=== PATIENT | male | born 1960 | race Hispanic/Latino ===

== ENCOUNTER 2017-05-24 07:54 | Inpatient (IN) | payer OTHER ==
[2017-05-24 09:58] LABS: BASO # 0.1 K/uL (0.0-0.2); BASO % 0.8 % (0.0-2.0); EOS % 0.5 % (0.0-4.0); HEMOGLOBIN 14.6 g/dL (12.0-18.0); LYMPH # 1.6 K/uL (1.0-4.3); LYMPH % 18.2 % (20.0-40.0); MEAN CELL VOLUME 87.5 fl (80.0-94.0); MEAN CORPUSCULAR HEMOGLOBIN 30.7 pg (27.0-31.0); MEAN CORPUSCULAR HGB CONC 35.1 g/dL (33.0-37.0); MEAN PLATELET VOLUME 8.5 fl (7.2-11.7); MONO # 0.9 K/uL (0.0-0.8); MONO % 9.6 % (0.0-10.0); NEUT # 6.3 K/uL (1.8-7.0); NEUT % 70.9 % (50.0-75.0); NRBC % 0.1 % (0.0-0.0); RBC 4.75 Mil/uL (4.40-5.90); WHITE BLOOD COUNT 8.9 K/uL (4.8-10.8)
--- NOTE | 2017-05-24 09:58 | ED PDOC ---
HPI: Chest Pain Time Seen by Provider: 05/24/17 09:25 Chief Complaint (Nursing): Chest Pain Chief Complaint (Provider): Chest Pain History Per: Patient History/Exam Limitations: no limitations Onset/Duration Of Symptoms: Days (x 1) Current Symptoms Are (Timing): Still Present Additional Complaint(s): 56 year old male with a history of psoriasis and obstructive sleep apnea presents to the ED c/o chest tightness across chest associated with shortness of breath since last night. Describes as a "band across chest". Denies nausea and vomiting. PMD: none provided Past Medical History Reviewed: Historical Data, Nursing Documentation, Vital Signs Vital Signs: Last Vital Signs Temp 97.4 F L 05/24/17 08:06 Pulse 97 H 05/24/17 08:06 Resp 16 05/24/17 08:06 BP 147/92 H 05/24/17 08:06 Pulse Ox 98 05/24/17 10:02 - Medical History PMH: Sleep Apnea Other PMH: Psoriasis - Surgical History Surgical History: No Surg Hx - Family History Family History: States: Unknown Family Hx - Social History Current smoker - smoking cessation education provided: Yes Alcohol: Social Drugs: Denies - Allergies Allergies/Adverse Reactions: Allergies Allergy/AdvReac Type Severity Reaction Status Date / Time No Known Allergies Allergy Verified 05/24/17 08:06 Review of Systems Cardiovascular: Positive for: Chest Pain Respiratory: Positive for: Shortness of Breath Gastrointestinal: Negative for: Nausea, Vomiting Physical Exam - Reviewed Nursing Documentation Reviewed: Yes Vital Signs Reviewed: Yes - Physical Exam Appears: Positive for: Non-toxic, No Acute Distress Head Exam: Positive for: ATRAUMATIC, NORMOCEPHALIC Skin: Positive for: Normal Color, Warm, Dry Eye Exam: Positive for: EOMI, Normal appearance, PERRL Cardiovascular/Chest: Positive for: Regular Rate, Rhythm Respiratory: Positive for: CNT, Normal Breath Sounds Gastrointestinal/Abdominal: Positive for: Normal Exam, Soft. Negative for: Tenderness Extremity: Positive for: Other (Psoriatic rash right upper extremity ) Neurologic/Psych: Positive for: Alert, Oriented - Laboratory Results Result Diagrams: 05/24/17 09:53 05/24/17 09:53 - ECG O2 Sat by Pulse Oximetry: 98 (RA) Pulse Ox Interpretation: Normal Medical Decision Making Medical Decision Making: Time: 09:39 Initial Plan: --CMP --EKG --Troponin --CBC --Chest x-ray --Aspirin 325 mg PO Scribe Attestation: Documented by Fiorella White, acting as a scribe for John Gandara MD Provider Scribe Attestation: All medical record entries made by the Scribe were at my direction and personally dictated by me. I have reviewed the chart and agree that the record accurately reflects my personal performance of the history, physical exam, medical decision making, and the department course for this patient. I have also personally directed, reviewed, and agree with the discharge instructions and disposition. Disposition - Clinical Impression Clinical Impression: Chest pain - Patient ED Disposition Is Patient to be Admitted: Yes - Disposition Disposition Time: 11:34 Condition: FAIR Forms: [employer]re[employer] (Italian) - Pt Status Changed To: Hospital Disposition Of: Observation - POA Present On Arrival: None
[2017-05-24 10:08] LABS: ALB/GLOB RATIO 1.2 (1.0-2.1); ALBUMIN 4.4 g/dL (3.5-5.0); CALCIUM 9.4 mg/dL (8.4-10.2); GFR AFRICAN-AMERICAN > 60; GFR NON-AFRICAN AMERICAN > 60
[2017-05-24 10:09] LABS: ALT/SGPT 68 U/L (21-72); AST/SGOT 65 U/L (17-59); BLOOD UREA NITROGEN 13 mg/dl (9-20)
--- NOTE | 2017-05-24 13:40 | RAD ---
HISTORY: chest pain COMPARISON: No prior. TECHNIQUE: Chest PA and lateral FINDINGS: LUNGS: No active pulmonary disease. PLEURA: No significant pleural effusion identified. No pneumothorax apparent. CARDIOVASCULAR: Heart appears mildly enlarged knee. KeyNormal. OSSEOUS STRUCTURES: Mild multilevel degenerative spondylosis of the thoracic spine. Minimal chronic anterior wedge deformities of a few upper/ mid thoracic segments. VISUALIZED UPPER ABDOMEN: Normal. OTHER FINDINGS: None. IMPRESSION: No acute infiltrates. The the
--- NOTE | 2017-05-24 19:57 | CP.PCM.CON ---
History of Present Illness - History of Present Illness History of Present Illness: 56 y/o male presents with chest discomfort x 4 hours. Pain was 5/10 at peak, woke him from sleep last night at 2 am. He cannot isolate any relieving or exac factors. pain described as pressure across entire chest, w associated sob , LH, and headache. Pain does not increase with activity or manual manipulation of chest or abdomen. It is not associated with meals or relieved by belching. Pt admits to MOSLEY with 2-3 flights of stairs, however no chest discomfort. He denies palp, syncope, neck or arm radiation, n/v/d/c. diaphoresis. pt did have one prior episode 3 years ago but did not seek med attention. he has hx of simon and does not wear cpap. pt also admits to excessive etoh intake this past weekend. he admits to drinking occasionally, with binge drinking 3 days ago and yesterday. Pt has a strong fam hx of IHD ( mom had PR at 52 which was fatal). denies dm, htn, dyslipidemia (however has not been to physician in many years). since admission bp has been elevated. Review of Systems - Constitutional Constitutional: As Per HPI, Headache, Snoring, Sleep Apnea. absent: Anorexia, Chills, Daytime Sleepiness, Excessive Sweating, Fatigue, Fever, Frequent Falls, Increased Appetite, Lethargy, Malaise, Night Sweats, Weight Gain, Weight Loss, Weakness, Other - EENT Eyes: As Per HPI. absent: Blind Spots, Blurred Vision, Change in Vision, Decreased Night Vision, Diplopia, Discharge, Dry Eye, Exophthalmos, Floaters, Irritation, Itchy Eyes, Loss of Peripheral Vision, Pain, Photophobia, Requires Corrective Lenses, Sees Flashes, Spots in Vision, Tunnel Vision, Other Visual Disturbances, Loss of Vision, Other Ears: As Per HPI. absent: Decreased Hearing, Ear Discharge, Ear Pain, Tinnitus , Abnormal Hearing, Disequilibrium, Dizziness, Other Nose/Mouth/Throat: As Per HPI. absent: Epistaxis, Nasal Congestion, Nasal Discharge, Nasal Obstruction, Nasal Trauma, Nose Pain, Post Nasal Drip, Sinus Pain, Sinus Pressure, Bleeding Gums, Change in Voice, Dental Pain, Dry Mouth, Dysphagia, Halitosis, Hoarsness, Lip Swelling, Mouth Lesions, Mouth Pain, Odynophagia, Sore Throat, Throat Swelling, Tongue Swelling, Facial Pain, Neck Pain, Neck Mass, Other - Cardiovascular Cardiovascular: Chest Pain at Rest, Dyspnea, Lightheadedness. absent: As Per HPI, Acrocyanosis, Chest Pain, Chest Pain with Activity, Claudication, Diaphoresis, Dyspnea on Exertion, Edema, Irregular Heart Rhythm, Pain Radiating to Arm/Neck/Jaw, Leg Edema, Leg Ulcers, Orthopnea, Palpitations, Paroxysmal Nocturnal Dyspnea, Pedal Edema, Radiating Pain, Rapid Heart Rate, Slow Heart Rate, Syncope, Other - Respiratory Respiratory: Cough, Dyspnea, Dyspnea on Exertion. absent: As Per HPI, Hemoptysis, Wheezing, Snoring, Stridor, Pain on Inspiration, Chest Congestion, Excessive Mucous Production, Change in Mucous Color, Pain with Coughing, Other - Gastrointestinal Gastrointestinal: As Per HPI. absent: Abdominal Pain, Belching, Bloating, Change in Bowel Habits, Change in Stool Character, Coffee Ground Emesis, Constipation, Cramping, Diarrhea, Dyspepsia, Dysphagia, Early Satiety, Excessive Flatus, Fecal Incontinence, Heartburn, Hematemesis, Hematochezia, Loose Stools, Melena, Nausea, Odynophagia, Temesmus, Vomiting, Other - Genitourinary Genitourinary: As Per HPI. absent: Change in Urinary Stream, Difficulty Urinating, Dysuria, Flank Pain, Hematuria, Pyuria, Nocturia, Urinary Incontinence, Urinary Frequency, Urinary Hesitance, Urinary Urgency, Voiding Freq/Small Amts, Freq UTI, Hx Renal/Bladder Calculi, Hx /Renal Surgery, Bladder Distension, Other - Reproductive: Male Reproductive:Male: As Per HPI - Musculoskeletal Musculoskeletal: As Per HPI. absent: Abnormal Gait, Arthralgias, Atrophy, Back Pain, Deformity, Joint Swelling, Limited Range of Motion, Loss of Height, Muscle Cramps, Muscle Weakness, Myalgias, Neck Pain, Numbness, Radiating Pain into Limb, Stiffness, Tingling, Other - Integumentary Integumentary: As Per HPI Additional comments: psoriasis which is chronic - Neurological Neurological: As Per HPI. absent: Abnormal Gait, Abnormal Hearing, Abnormal Movements, Abnormal Speech, Behavioral Changes, Burning Sensations, Confusion, Convulsions, Disequilibrium, Dizziness, Numbness, Focal Weakness, Frequent Falls , Headaches, Lack of Coordination, Loss of Vision, Memory Loss, Paresthesias, Radicular Pain, Restless Legs, Sensory Deficit, Syncope, Tingling, Tremor, Vertigo, Weakness, Other Visual Disturbances, Other - Psychiatric Psychiatric: As Per HPI. absent: Abnormal Sleep Pattern, Anhedonia, Anxiety, Auditory Hallucinations, Behavioral Changes, Change in Appetite, Change in Libido, Confusion, Depression, Difficulty Concentrating, Hallucinations, Homicidal Ideation, Hopelessness, Irritability, Memory Loss, Mood Swings, Panic Attacks, Paranoia, Suicidal Ideation, Visual Hallucinations, Tactile Hallucinations, Other - Endocrine Endocrine: As Per HPI. absent: Change in Body Appearance, Change in Libido, Cold Intolorance, Deepening of Voice, Excessive Sweating, Fatigue, Flushing, Heat Intolorance, Increase in Ring/Shoe/Hat Size, Palpitations, Polydipsia, Polyphagia, Polyuria, Other - Hematologic/Lymphatic Hematologic: As Per HPI. absent: Easy Bleeding, Easy Bruising, Lymphadenopathy , Other Past Patient History - Infectious Disease Hx of Infectious Diseases: None - Tetanus Immunizations Tetanus Immunization: Unknown - Past Medical History & Family History Past Medical History?: Yes - Past Social History Smoking Status: Former Smoker Chewing Tobacco Use: No Cigar Use: No Alcohol: Occasional Drugs: Denies Home Situation {Lives}: With Family Domestic Violence: Negative - CARDIAC Hx Cardiac Disorders: No - PULMONARY Hx Respiratory Disorders: No - NEUROLOGICAL Hx Neurological Disorder: No - HEENT Hx HEENT Problems: No - RENAL Hx Chronic Kidney Disease: No - ENDOCRINE/METABOLIC Hx Endocrine Disorders: No - HEMATOLOGICAL/ONCOLOGICAL Hx Blood Disorders: No - INTEGUMENTARY Hx Dermatological Problems: Yes Hx Psoriasis: Yes - MUSCULOSKELETAL/RHEUMATOLOGICAL Hx Musculoskeletal Disorders: Yes Hx Falls: No Hx Fractures: Yes - GENITOURINARY/GYNECOLOGICAL Hx Genitourinary Disorders: No - PSYCHIATRIC Hx Psychophysiologic Disorder: No Hx Substance Use: No - SURGICAL HISTORY Hx Appendectomy: Yes Hx Orthopedic Surgery: Yes (right tibia) - ANESTHESIA Hx Anesthesia: Yes Hx Anesthesia Reactions: No Meds Allergies/Adverse Reactions: Allergies Allergy/AdvReac Type Severity Reaction Status Date / Time No Known Allergies Allergy Verified 05/24/17 08:06 - Medications Medications: Current Medications Aspirin (Aspirin Chewable) 81 mg PO DAILY KENIA Enoxaparin Sodium (Lovenox) 40 mg SC DAILY KENIA PRN Reason: Protocol Physical Exam - Constitutional Appears: Well, Non-toxic - Head Exam Head Exam: ATRAUMATIC, NORMAL INSPECTION, NORMOCEPHALIC - Eye Exam Eye Exam: EOMI, Normal appearance, PERRL. absent: Conjunctival injection, Nystagmus, Periorbital swelling, Periorbital tenderness, Scleral icterus Pupil Exam: NORMAL ACCOMODATION, PERRL. absent: Fixed, Irregular, Miosis, Mydriatic, Unequal - ENT Exam ENT Exam: Mucous Membranes Moist, Normal Exam. absent: Mucous Membranes Dry, Normal External Ear Exam, Normal Oropharynx, TM's Normal Bilaterally - Neck Exam Neck exam: Positive for: Normal Inspection. Negative for: Full Rom, Lymphadenopathy, Meningismus, Tenderness, Thyromegaly - Respiratory Exam Respiratory Exam: Clear to Auscultation Bilateral, NORMAL BREATHING PATTERN. absent: Accessory Muscle Use, Chest Wall Tenderness, Decreased Breath Sounds, Prolonged Expiratory Phase, Rales, Rhonchi, Wheezes, Respiratory Distress, Stridor - Cardiovascular Exam Cardiovascular Exam: REGULAR RHYTHM, +S1, +S2, Systolic Murmur. absent: Bradycardia, Tachycardia, Clicks, Diastolic murmur, Gallop, Irregular Rhythm, JVD, RRR, Rubs, +S4 - GI/Abdominal Exam GI & Abdominal Exam: Normal Bowel Sounds, Soft. absent: Bruit, Diminished Bowel Sounds, Distended, Firm, Guarding, Hernia, Hyperactive Bowel Sounds, Hypoactive Bowel Sounds, Mass, Organomegaly, Pulsatile Mass, Rebound, Rigid, Tenderness - Rectal Exam Rectal Exam: Deferred - Extremities Exam Extremities exam: Positive for: normal inspection. Negative for: calf tenderness, full ROM, joint swelling, normal capillary refill, pedal edema, tenderness, pedal pulses present - Back Exam Back exam: NORMAL INSPECTION. absent: CVA tenderness (L), CVA tenderness (R), FULL ROM, muscle spasm, paraspinal tenderness, rash noted, tenderness, vertebral tenderness - Neurological Exam Neurological exam: Alert, CN II-XII Intact, Normal Gait, Oriented x3, Reflexes Normal - Psychiatric Exam Psychiatric exam: Normal Affect, Normal Mood - Skin Additional comments: dry scaly patches on b/l UE's Results - Vital Signs Recent Vital Signs: Last Vital Signs Temp 98.4 F 05/24/17 19:32 Pulse 79 05/24/17 19:32 Resp 20 05/24/17 19:32 BP 143/76 05/24/17 19:32 Pulse Ox 97 05/24/17 19:32 - Labs Result Diagrams: 05/24/17 09:53 05/24/17 09:53 Labs: Laboratory Results - last 24 hr 05/24/17 05/24/17 09:53 09:53 WBC 8.9 RBC 4.75 Hgb 14.6 Hct 41.5 MCV 87.5 MCH 30.7 MCHC 35.1 RDW 13.0 Plt Count 208 MPV 8.5 Neut % (Auto) 70.9 Lymph % (Auto) 18.2 L Barren % (Auto) 9.6 Eos % (Auto) 0.5 Baso % (Auto) 0.8 Neut # 6.3 Lymph # 1.6 Barren # 0.9 H Eos # 0.0 Baso # 0.1 Sodium 142 Potassium 4.5 Chloride 107 Carbon Dioxide 21 L Anion Gap 19 BUN 13 Creatinine 0.9 Est GFR ( Amer) > 60 Est GFR (Non-Af Amer) > 60 Random Glucose 104 Calcium 9.4 Total Bilirubin 1.0 AST 65 H ALT 68 Alkaline Phosphatase 71 Troponin I 0.0210 Total Protein 8.0 Albumin 4.4 Globulin 3.6 Albumin/Globulin Ratio 1.2 Assessment & Plan (1) Chest pain Status: Acute (2) SIMON (obstructive sleep apnea) Status: Acute (3) Elevated BP without diagnosis of hypertension Status: Acute (4) Family history of ischemic heart disease (IHD) Status: Acute (5) MOSLEY (dyspnea on exertion) Status: Acute (6) Psoriasis Status: Acute - Assessment and Plan (Free Text) Plan: PT HAS TROP NEG X 1. EKG IS NONISCHEMIC. NO CLEAR ETIOLOGY OF CHEST PRESSURE AT THIS TIME. I RECOMMEND ECHO AND EX NUC ST GIVEN HIS STRONG FAM HX OF CAD AND HIS POOR OUTPT FOLLOWUP HISTORY. MONITOR BP (HOLD OFF TREATING). I WOULD LIKE TO SEE PTS BP RESPONSE WITH EXERCISE. IF HIS BASELINE AND EXERCISE BP REMAIN ELEVATED THEN WILL CONSIDER TREATING POST TESTING. RECHECK EKG, LYTES, DRUG TOX. GIVE PEPCID. CHECK LIPIDS. THUS FAR NO ARRYTHMIAS ON TELE. 45 MIN TOTAL CARE TIME.
[2017-05-24 23:17] LABS: SQUAMOUS EPITHIAL < 1 /hpf (0-5); URINE BILIRUBIN NEGATIVE (NEGATIVE); URINE BLOOD MODERATE (NEGATIVE); URINE CLARITY CLOUDY (Clear); URINE COLOR AMBER (YELLOW); URINE GLUCOSE (UA) NEG (Normal); URINE HYALINE CAST 0-2 /hpf (0-2); URINE LEUKOCYTE ESTERASE NEG Leu/uL (Negative); URINE NITRATE NEGATIVE (NEGATIVE); URINE PROTEIN 100 mg/dL (NEGATIVE)
[2017-05-24] MEDS ORDERED: Ammonium Lactate 12% Cream (140 g) TOP PRN (23:25)
[2017-05-25 05:43] LABS: BLOOD UREA NITROGEN 18 mg/dl (9-20); CALCIUM 9.6 mg/dL (8.4-10.2); GFR AFRICAN-AMERICAN > 60; GFR NON-AFRICAN AMERICAN > 60; HDL CHOLESTEROL 45 MG/DL (30-70); MAGNESIUM 2.7 MG/DL (1.6-2.3)
[2017-05-25 05:47] LABS: LDL CHOLESTEROL 146 mg/dL (0-129)
--- NOTE | 2017-05-25 08:14 | CARD ---
APPROVED REPORT EKG Measurement Heart [id number] <Conclusion> Sinus bradycardia Incomplete right bundle branch block Borderline ECG
--- NOTE | 2017-05-25 08:39 | CARD ---
APPROVED REPORT EKG Measurement Heart [id number] [place] [id number] <Conclusion> Normal sinus rhythm Incomplete right bundle branch block Possible old inferior wall infarct Borderline ECG
[2017-05-25] MEDS ORDERED: Enoxaparin 40 mg Syringe SC SCH (09:00)
[2017-05-25] MEDS: Famotidine 40 MG/5 ML PO SCH (15:00)
--- NOTE | 2017-05-25 16:34 | CP.PCM.HP ---
History of Present Illness - History of Present Illness History of Present Illness: CC: Chest pain. 56 y/o M, Hx of SIMON not using CPAP, brought by EMS to ER [facility] to be evaluated for Chest pain that began at 2AM DOA and woke him from sleep, Pt denied Hx of HTN, not using any medications and without relief. Pt c/o of intermittent chest pain, across chest, pressure type of moderate to severe intensity 5:10, non radiating, associated to headache and mild SOB. Worsening symptoms: MOSLEY after going up 3 steps, Hx of excessive alcohol intake last weekend. Aggravated factor: No following medical Tx after having same episode 3 yrs ago. Pt denied: Fever, chills, n/v/d, abdominal pain, palpitations, syncope, dizziness, LOC, cough, sick contact, resent travel out of [facility]. EKG: Normal sinus rhythm, possible old inferior wall infarct. CXR shows: No active disease. Present on Admission - Present on Admission Any Indicators Present on Admission: No Review of Systems - Constitutional Constitutional: Headache, Snoring, Sleep Apnea - EENT Eyes: absent: As Per HPI, Blind Spots, Blurred Vision, Change in Vision, Decreased Night Vision, Diplopia, Discharge, Dry Eye, Exophthalmos, Floaters, Irritation, Itchy Eyes, Loss of Peripheral Vision, Pain, Photophobia, Requires Corrective Lenses, Sees Flashes, Spots in Vision, Tunnel Vision, Other Visual Disturbances, Loss of Vision, Other Nose/Mouth/Throat: absent: As Per HPI, Epistaxis, Nasal Congestion, Nasal Discharge, Nasal Obstruction, Nasal Trauma, Nose Pain, Post Nasal Drip, Sinus Pain, Sinus Pressure, Bleeding Gums, Change in Voice, Dental Pain, Dry Mouth, Dysphagia, Halitosis, Hoarsness, Lip Swelling, Mouth Lesions, Mouth Pain, Odynophagia, Sore Throat, Throat Swelling, Tongue Swelling, Facial Pain, Neck Pain, Neck Mass, Other - Cardiovascular Cardiovascular: Chest Pain, Dyspnea, Dyspnea on Exertion. absent: As Per HPI, Acrocyanosis, Chest Pain at Rest, Chest Pain with Activity, Claudication, Diaphoresis, Edema, Irregular Heart Rhythm, Pain Radiating to Arm/Neck/Jaw, Leg Edema, Leg Ulcers, Lightheadedness, Orthopnea, Palpitations, Paroxysmal Nocturnal Dyspnea, Pedal Edema, Radiating Pain, Rapid Heart Rate, Slow Heart Rate, Syncope, Other - Respiratory Respiratory: Dyspnea, Dyspnea on Exertion, Snoring. absent: As Per HPI, Cough, Hemoptysis, Wheezing, Stridor, Pain on Inspiration, Chest Congestion, Excessive Mucous Production, Change in Mucous Color, Pain with Coughing, Other - Gastrointestinal Gastrointestinal: absent: As Per HPI, Abdominal Pain, Belching, Bloating, Change in Bowel Habits, Change in Stool Character, Coffee Ground Emesis, Constipation, Cramping, Diarrhea, Dyspepsia, Dysphagia, Early Satiety, Excessive Flatus, Fecal Incontinence, Heartburn, Hematemesis, Hematochezia, Loose Stools, Melena, Nausea, Odynophagia, Temesmus, Vomiting, Other - Genitourinary Genitourinary: absent: As Per HPI, Change in Urinary Stream, Difficulty Urinating, Dysuria, Flank Pain, Hematuria, Pyuria, Nocturia, Urinary Incontinence, Urinary Frequency, Urinary Hesitance, Urinary Urgency, Voiding Freq/Small Amts, Freq UTI, Hx Renal/Bladder Calculi, Hx /Renal Surgery, Bladder Distension, Other - Musculoskeletal Musculoskeletal: absent: As Per HPI, Abnormal Gait, Arthralgias, Atrophy, Back Pain, Deformity, Joint Swelling, Limited Range of Motion, Loss of Height, Muscle Cramps, Muscle Weakness, Myalgias, Neck Pain, Numbness, Radiating Pain into Limb, Stiffness, Tingling, Other - Integumentary Integumentary: Other (Chronic Psoriasis). absent: As Per HPI, Acne, Alopecia, Bleeding Lesions, Change in Hair, Change in Nails, Change in Pigmentation, Changing Lesions, Dry Skin, Erythema, Furuncle, Hirsutism, Lesions, New Lesions , Non-Healing Lesions, Photosensitivity, Pruritus, Rash, Skin Pain, Skin Ulcer, Sores, Striae, Swelling, Unusual Bruising, Wounds, Jaundice - Neurological Neurological: absent: As Per HPI, Abnormal Gait, Abnormal Hearing, Abnormal Movements, Abnormal Speech, Behavioral Changes, Burning Sensations, Confusion, Convulsions, Disequilibrium, Dizziness, Numbness, Focal Weakness, Frequent Falls , Headaches, Lack of Coordination, Loss of Vision, Memory Loss, Paresthesias, Radicular Pain, Restless Legs, Sensory Deficit, Syncope, Tingling, Tremor, Vertigo, Weakness, Other Visual Disturbances, Other - Psychiatric Psychiatric: absent: As Per HPI, Abnormal Sleep Pattern, Anhedonia, Anxiety, Auditory Hallucinations, Behavioral Changes, Change in Appetite, Change in Libido, Confusion, Depression, Difficulty Concentrating, Hallucinations, Homicidal Ideation, Hopelessness, Irritability, Memory Loss, Mood Swings, Panic Attacks, Paranoia, Suicidal Ideation, Visual Hallucinations, Tactile Hallucinations, Other - Endocrine Endocrine: absent: As Per HPI, Change in Body Appearance, Change in Libido, Cold Intolorance, Deepening of Voice, Excessive Sweating, Fatigue, Flushing, Heat Intolorance, Increase in Ring/Shoe/Hat Size, Palpitations, Polydipsia, Polyphagia, Polyuria, Other - Hematologic/Lymphatic Hematologic: absent: As Per HPI, Easy Bleeding, Easy Bruising, Lymphadenopathy, Other Past Patient History - Infectious Disease Hx of Infectious Diseases: None - Tetanus Immunizations Tetanus Immunization: Unknown - Past Medical History & Family History Past Medical History?: Yes Pertinent Family History: Mother: Fatal [place] at 52 y/o - Past Social History Smoking Status: Former Smoker Chewing Tobacco Use: No Cigar Use: No Alcohol: Occasional Drugs: Denies Home Situation {Lives}: With Family Domestic Violence: Negative - CARDIAC Hx Cardiac Disorders: No - PULMONARY Hx Respiratory Disorders: Yes Hx Sleep Apnea: Yes - NEUROLOGICAL Hx Neurological Disorder: No - HEENT Hx HEENT Problems: No - RENAL Hx Chronic Kidney Disease: No - ENDOCRINE/METABOLIC Hx Endocrine Disorders: No - HEMATOLOGICAL/ONCOLOGICAL Hx Blood Disorders: No - INTEGUMENTARY Hx Dermatological Problems: Yes Hx Psoriasis: Yes - MUSCULOSKELETAL/RHEUMATOLOGICAL Hx Musculoskeletal Disorders: Yes Hx Falls: No Hx Fractures: Yes - GENITOURINARY/GYNECOLOGICAL Hx Genitourinary Disorders: No - PSYCHIATRIC Hx Psychophysiologic Disorder: No Hx Substance Use: No - SURGICAL HISTORY Hx Appendectomy: Yes Hx Orthopedic Surgery: Yes (right tibia) - ANESTHESIA Hx Anesthesia: Yes Hx Anesthesia Reactions: No Meds Allergies/Adverse Reactions: Allergies Allergy/AdvReac Type Severity Reaction Status Date / Time No Known Allergies Allergy Verified 05/24/17 08:06 Physical Exam - Constitutional Appears: No Acute Distress - Head Exam Head Exam: NORMAL INSPECTION - Eye Exam Eye Exam: PERRL - ENT Exam ENT Exam: Normal Exam - Neck Exam Neck exam: Positive for: Normal Inspection - Respiratory Exam Respiratory Exam: NORMAL BREATHING PATTERN - Cardiovascular Exam Cardiovascular Exam: REGULAR RHYTHM, Systolic Murmur - GI/Abdominal Exam GI & Abdominal Exam: Normal Bowel Sounds, Soft - Extremities Exam Additional comments: Dry scaly patches RUE's - Back Exam Back exam: NORMAL INSPECTION - Neurological Exam Neurological exam: Alert, Oriented x3 Additional comments: No motor sensory deficit. - Psychiatric Exam Psychiatric exam: Normal Mood - Skin Skin Exam: Dry (scaly patches RUE's), Warm Results - Vital Signs Recent Vital Signs: Last Vital Signs Temp 98.9 F 05/25/17 16:18 Pulse 61 05/25/17 16:18 Resp 14 05/25/17 16:18 BP 139/84 05/25/17 16:18 Pulse Ox 98 05/25/17 16:18 reviewed J.P. - Labs Result Diagrams: 05/24/17 09:53 05/25/17 04:25 Labs: Laboratory Results - last 24 hr 05/24/17 05/24/17 05/24/17 16:31 22:50 22:50 ESR Sodium Potassium Chloride Carbon Dioxide Anion Gap BUN Creatinine Est GFR ( Amer) Est GFR (Non-Af Amer) Random Glucose Calcium Magnesium Troponin I 0.0130 0.0120 Triglycerides Cholesterol LDL Cholesterol Direct HDL Cholesterol TSH 3rd Generation Urine Color Emperatriz Urine Clarity Cloudy Urine pH 5.0 Ur Specific [place] 1.029 Urine Protein 100 Urine Glucose (UA) Neg Urine Ketones 20 Urine Blood Moderate Urine Nitrate Negative Urine Bilirubin Negative Urine Urobilinogen 2.0 Ur Leukocyte Esterase Neg Urine RBC (Auto) 4 H Urine Microscopic WBC 3 Ur Squamous Epith Cells < 1 Hyaline Casts 0-2 05/25/17 05/25/17 04:25 04:25 ESR 36 H Sodium 144 Potassium 5.0 Chloride 104 Carbon Dioxide 30 Anion Gap 15 BUN 18 Creatinine 1.1 Est GFR ( Amer) > 60 Est GFR (Non-Af Amer) > 60 Random Glucose 97 Calcium 9.6 Magnesium 2.7 H Troponin I Triglycerides 177 H Cholesterol 219 H LDL Cholesterol Direct 146 H HDL Cholesterol 45 TSH 3rd Generation 3.22 Urine Color Urine Clarity Urine pH Ur Specific [place] Urine Protein Urine Glucose (UA) Urine Ketones Urine Blood Urine Nitrate Urine Bilirubin Urine Urobilinogen Ur Leukocyte Esterase Urine RBC (Auto) Urine Microscopic WBC Ur Squamous Epith Cells Hyaline Casts reviewed J.P. - EKG Data EKG comments: reviewed J.P. - Imaging and Cardiology Chest x-ray Status: Report reviewed by me (J.P.) Assessment & Plan (1) Chest pain Status: Acute Priority: High (2) Elevated BP without diagnosis of hypertension Status: Acute Priority: High (3) SIMON (obstructive sleep apnea) Status: Chronic Priority: Medium (4) Psoriasis Status: Chronic Priority: Medium (5) Family history of ischemic heart disease (IHD) Status: Chronic - Assessment and Plan (Free Text) Plan: Pt seen by call center consultant with impression of no etiology for chest pain, recommended Echo and EX NUC ST, monitor BP, continue ASA and rest of Tx. Cardiology consult appreciated. - Date & Time Date: 05/25/17
--- NOTE | 2017-05-25 17:03 | CP.PCM.PN ---
Subjective - Date & Time of Evaluation Date of Evaluation: 05/25/17 Time of Evaluation: 17:00 - Subjective Subjective: PT WITHOUT CHEST DISCOMFORT CURRENTLY. EX NUC ST NOT FINALIZED. HOWEVER IMAGES REVEAL A MILD REVERSIBLE INFERIOR WALL DEFECT. NML EF. RAW IMAGES REVEAL STAR ARTIFACT. GIVEN PTS MULTIPLE RISK FACTORS, ST AND SYMPTOMS I WILL SCHEDULE HIM FOR CATH TOMORROW AT [facility]. PROCEDURE EXPLAINED TO PT. PLEASE HOLD AM LOVENOX, BUT CONTINUE ASA. MONITOR LYTES. NPO P MN. Objective - Vital Signs/Intake and Output Vital Signs (last 24 hours): Temp Pulse Resp BP Pulse Ox 98.9 F 61 14 139/84 98 05/25/17 16:18 05/25/17 16:18 05/25/17 16:18 05/25/17 16:18 05/25/17 16:18 - Medications Medications: Current Medications Aspirin (Aspirin Chewable) 81 mg PO DAILY [facility] Last Admin: 05/25/17 15:00 Dose: 81 mg Enoxaparin Sodium (Lovenox) 40 mg SC DAILY [facility] PRN Reason: Protocol Last Admin: 05/25/17 15:00 Dose: 40 mg Famotidine (Pepcid) 40 mg PO DAILY [facility] Last Admin: 05/25/17 15:00 Dose: 40 mg Hydrocortisone (Cortizone 1% Cream) 1 applic TOP BID [facility] Last Admin: 05/25/17 16:47 Dose: 1 applic - Labs Labs: 05/24/17 09:53 05/25/17 04:25 Assessment and Plan (1) Chest pain Status: Acute (2) SIMON (obstructive sleep apnea) Status: Acute (3) Elevated BP without diagnosis of hypertension Status: Acute (4) Family history of ischemic heart disease (IHD) Status: Acute (5) MOSLEY (dyspnea on exertion) Status: Acute (6) Psoriasis Status: Acute
--- NOTE | 2017-05-25 20:13 | CARD ---
APPROVED REPORT EXAM: Two-dimensional and M-mode echocardiogram with Doppler and color Doppler. 2D DIMENSIONS IVSd1.68 (0.7-1.1cm)LVDd4.66 (3.9-5.9cm) PWd0.96 (0.7-1.1cm)IVSs1.39 (0.8-1.2cm) LVDs3.65 (2.5-4.0cm)FS (%) 21.7 % PWs1.49 (0.8-1.2cm)LVEF (%)44.0 (>50%) M-Mode DIMENSIONS Left Atrium (MM)4.52 (2.5-4.0cm)Aortic Root3.16 (2.2-3.7cm) Aortic Cusp Exc.1.96 (1.5-2.0cm) Mitral Valve MV E Ydkeakud97.1cm/sMV DECEL [id number] A Cllkkmhb28.9cm/s MV VTN38xxL/A ratio1.3MVA (PHT)3.49cm2 TDI Lateral E' Peak V12.79cm/sE/Lateral E'6.4E/Medial E'0.0 Tricuspid Valve TR Peak Rcbbtbgj040ay/sTR Peak Gr.19mmHg LEFT VENTRICLE The left ventricle is normal size. There appears to be concentric left ventricular hypertrophy. The study is of too suboptimal quality to comment on the LV function. The study if of too suboptimal quality to comment on LV wall motion. The left ventricular diastolic function is normal. No left ventricle thrombus noted on this study. There is no ventricular septal defect visualized. There is no left ventricular aneurysm. There is no mass noted in the left ventricle. RIGHT VENTRICLE The right ventricle is mildly to moderately dilated on some 2D views.. There is normal right ventricular wall thickness. The study is of too suboptimal quality to comment on the RV function. ATRIA The left atrium size is normal. The right atrium is mildly to moderately dilated on some 2D views. The interatrial septum is intact with no evidence for an atrial septal defect. AORTIC VALVE The aortic valve is normal in structure. No aortic regurgitation is present. There is no aortic valvular stenosis. MITRAL VALVE The mitral valve is normal in structure. There is no evidence of mitral valve prolapse. There is no mitral valve stenosis. There is no mitral valve regurgitation noted. TRICUSPID VALVE The tricuspid valve is normal in structure. There is mild tricuspid regurgitation. Right ventricular systolic pressure is estimated at 30 mmHg. There is no tricuspid valve prolapse or vegetation. There is no tricuspid valve stenosis. PULMONIC VALVE The pulmonic valve is not well visualized. There is no pulmonic valvular regurgitation. GREAT VESSELS The aortic root is normal in size. The IVC was not visualized. PERICARDIAL EFFUSION The pericardium appears normal. There is no pleural effusion. <Conclusion> The study is of very suboptimal quality. The left ventricle is normal in size. There appears to be left ventricular hypertrophy. The study is of too suboptimal quality to comment on the LV function. The right ventricle and right atrium appear mildly to moderately dilated in some views. The mitral, aortic and tricuspid valves appear normal. There is mild tricuspid regurgitation. Please correlate clinically.
[2017-05-26 09:39] LABS: PROTHROMBIN TIME 12.4 Seconds (9.8-13.1)
[2017-05-26 09:40] LABS: INR 1.1 (0.9-1.2)
[2017-05-26] MEDS: Famotidine 40 MG/5 ML PO SCH (10:28)
--- NOTE | 2017-05-26 11:44 | CARD ---
APPROVED REPORT Protocol: MARIA DE JESUS Test Type: Stress Nuclear Medications: ADVIL PRN Medical History: FAMILY HISTORY CAD, SHORTNESS OF BREATH, FX TIBIA, SLEEP APNEA, PSORIASIS Target HR: 166 bpm Resting ECG: normal Resting Heart Rate: 77 bpm Resting Blood Pressure: 136/74mmHg submaximum (85%): 141 bpm TEST SUMMARY [id number]. [id number]. PRETESTHYPERV.00:[id number]/74.0. PRETESTWARM-UP18:[id number]/74.0. EXERCISESTAGE 103:[id number]/78.0. EXERCISESTAGE 203:[id number]/80.1. EXERCISESTAGE 300:[id number]/80.1. [id number]/78.0. POST EXERCISE Reason for Termination: Dyspnea Target HR: No Max HR: 121 bpm 72% of Maximum Predicted HR: 166 bpm Exercise duration: 06:55 min:sec, 3 Stage Exercise capacity: 8.3METs Max Blood Pressure: 178/80mmHg Blood Pressure response to exercise: normal resting BP - appropriate response Heart Rate response to exercise: appropriate Chest Pain: No, none Angina index: 0 Arrhythmia: No, none ST Change: No, none Deviation: 0 mm Stress EKG Interpretation 56 y/o w/m with chest pain Resting EKG: normal; HR: 77 BPM; BP:136/74 He exercised with Maria De Jesus Protocol for 6:55 Mins attaining a HR of 121 BPM which is 72% of MPHR; the test was terminated at the pt's request because of SOB. This represents a submaximal study His BP raoe to 178/80 with a workload of 8.3 METs. There was no chest pain or ST changes noted At peak exertion he was injected with 30 mCi T-99 Myoview Stress imaging was taken 45 minutes later EXAM: Myocardial Perfusion REST/STRESS Image QualityGood Imaging Protocol The imaging protocol used to acquire images was Rest Tc-99m/stress Tc-99m 1 day Rest Spect myocardial perfusion imaging was performed in supine position 40 minutes following the injection of 10 mCi of Tc-99 Myoview. Time of rest injection: 8:10 Time of rest imagin:50 At peak stress, the patient was injected intravenously with 30mCi of Tc-99 tetrofosmin after an infusion time of minutes and seconds. Time of stress injection: 10:50 Time of stress imagin:20 Gated Stress Spect was performed 80 minutes after intravenous Tc-99 Myoview injection. The images were gated to evaluate regional wall motion and calculate ventricular ejection fraction. LV Perfusion There is decreased perfusion in the inferior wall on stress imaging with near total reperfusion on resting imaging. Wall Motion Good LV function with EF: 60 - 65% CONCLUSION 1. Abnormal Stress Myoview with inferior wall ischemia
[2017-05-27] MEDS: Famotidine 40 MG/5 ML PO SCH (08:58)
[2017-05-27 12:45] VITALS: BP 136/75; PULSE 71; RESP 20; TEMP 98.5; O2SAT 97
--- NOTE | 2017-05-27 13:49 | CP.PCM.PN ---
Objective - Vital Signs/Intake and Output Vital Signs (last 24 hours): Temp Pulse Resp BP Pulse Ox 98.5 F 71 20 136/75 97 05/27/17 12:44 05/27/17 12:44 05/27/17 12:44 05/27/17 12:44 05/27/17 12:44 - Medications Medications: Current Medications Acetaminophen (Tylenol 325mg Tab) 650 mg PO Q6 PRN PRN Reason: Headache Last Admin: 05/26/17 22:19 Dose: 650 mg Acetaminophen (Tylenol 325mg Tab) 650 mg PO Q6 PRN PRN Reason: Pain, Mild (1-3) Aspirin (Aspirin Chewable) 81 mg PO DAILY [facility] Last Admin: 05/27/17 08:57 Dose: 81 mg Famotidine (Pepcid) 40 mg PO DAILY [facility] Last Admin: 05/27/17 08:58 Dose: 40 mg Hydrocortisone (Cortizone 1% Cream) 1 applic TOP BID [facility] Last Admin: 05/26/17 22:20 Dose: 1 applic - Labs Labs: 05/24/17 09:53 05/25/17 04:25 PT 12.4 Seconds (9.8-13.1) 05/26/17 09:25 INR 1.1 (0.9-1.2) 05/26/17 09:25 Assessment and Plan (1) Chest pain Status: Acute (2) Elevated BP without diagnosis of hypertension Status: Acute (3) SIMON (obstructive sleep apnea) Status: Chronic (4) Psoriasis Status: Chronic (5) Family history of ischemic heart disease (IHD) Status: Chronic
== END 2017-05-27 12:15 | disposition home or self-care (01) | DRG 287 ==
LOC: H.ER 07:54 → H.ERHOLD 11:41 → H.TEL 15:15 → OBSVTOIN 05-25 17:09 → H.TEL 05-25 22:12
PROVIDERS: ADMIT Internal Medicine Pulmonary Disease; ATTEND Internal Medicine Pulmonary Disease
PROC: 4A023N7 Measurement of Cardiac Sampling and Pressure, Left Heart, Percutaneous Approach (ICD-10-PCS; principal; 2017-05-26)
PROC: B206YZZ Plain Radiography of Right and Left Heart using Other Contrast (ICD-10-PCS; 2017-05-26)
DX: R07.89 Other chest pain (principal); E78.5 Hyperlipidemia, unspecified; G47.33 Obstructive sleep apnea (adult) (pediatric); R03.0 Elevated blood-pressure reading, without diagnosis of hypertension; L40.9 Psoriasis, unspecified; F17.200 Nicotine dependence, unspecified, uncomplicated; Z82.49 Family history of ischemic heart disease and other diseases of the circulatory system; R51 Headache

== ENCOUNTER 2017-06-11 22:35 | Emergency (ER) | payer OTHER ==
--- NOTE | 2017-06-11 23:34 | ED PDOC ---
HPI: Psych/Substance Abuse Time Seen by Provider: 06/11/17 22:44 Chief Complaint (Nursing): Alcohol Ingestion Chief Complaint (Provider): ETOH History Per: Patient History/Exam Limitations: no limitations Onset/Duration Of Symptoms: Hrs Current Symptoms Are (Timing): Still Present Additional Complaint(s): 56 yo male brought in by EMS for evaluation of ETOH. Pt denies drug use and reports drinking alcohol. Past Medical History Reviewed: Historical Data, Nursing Documentation, Vital Signs Vital Signs: Last Vital Signs Temp 97.8 F 06/11/17 22:38 Pulse 88 06/11/17 22:38 Resp 16 06/11/17 22:38 BP 138/81 06/11/17 22:38 Pulse Ox 100 06/11/17 22:38 - Medical History PMH: Fractures, Sleep Apnea Denies: Chronic Kidney Disease - Surgical History Surgical History: Appendectomy - Family History Family History: States: Unknown Family Hx, CAD - Home Medications Home Medications: Ambulatory Orders Medication Instructions Recorded Aspirin [Aspirin Chewable] 81 mg PO DAILY #30 chew 05/26/17 Famotidine [Pepcid] 40 mg PO DAILY #30 ml 05/26/17 Atorvastatin [Lipitor] 20 mg PO DAILY #30 tab 05/27/17 - Allergies Allergies/Adverse Reactions: Allergies Allergy/AdvReac Type Severity Reaction Status Date / Time No Known Allergies Allergy Verified 05/24/17 08:06 Review of Systems ROS Statement: Except As Marked, All Systems Reviewed And Found Negative Constitutional: Negative for: Fever, Chills Respiratory: Negative for: Cough Gastrointestinal: Negative for: Abdominal Pain Psych: Negative for: Anxiety, Psychosis Physical Exam - Reviewed Nursing Documentation Reviewed: Yes Vital Signs Reviewed: Yes - Physical Exam Appears: Positive for: Well, Non-toxic, No Acute Distress Head Exam: Positive for: ATRAUMATIC, NORMAL INSPECTION, NORMOCEPHALIC Skin: Positive for: Normal Color, Warm, DRY Eye Exam: Positive for: Normal appearance ENT: Positive for: Normal ENT Inspection Neck: Positive for: Normal, Painless ROM Cardiovascular/Chest: Positive for: Regular Rate, Rhythm Respiratory: Positive for: CNT, Normal Breath Sounds Gastrointestinal/Abdominal: Positive for: Normal Exam, Bowel Sounds, Soft Back: Positive for: Normal Inspection Extremity: Positive for: Normal ROM Neurologic/Psych: Positive for: Alert, Oriented, Gait (Unsteady) - ECG O2 Sat by Pulse Oximetry: 100 Medical Decision Making Medical Decision Making: Endorsed pending sobriety. Disposition - Clinical Impression Clinical Impression: Alcohol abuse - Patient ED Disposition Is Patient to be Admitted: Transfer of Care - Disposition Disposition: Transfer of Care Disposition Time: 23:34 Condition: STABLE
--- NOTE | 2017-06-11 23:49 | ED PDOC ---
- Laboratory Results Result Diagrams: 06/11/17 23:59 06/11/17 23:59 - ECG O2 Sat by Pulse Oximetry: 100 Pulse Ox Interpretation: Normal <Grace Patton - Last Filed: 06/12/17 05:56> - Laboratory Results Result Diagrams: 06/11/17 23:59 06/11/17 23:59 <Petey Mcdonough - Last Filed: 06/12/17 06:08> Medical Decision Making <Grace Patton - Last Filed: 06/12/17 05:56> <Petey Mcdonough - Last Filed: 06/12/17 06:08> Medical Decision Making: Case was signed out to keno writer / runner from [facility] pending sobriety. 1:22 - BAL is 430 1:40 - patient got up out of stretcher and stated he needs to leave. He would not return to bed, has very unsteady gait and is agitated and combative. He was escorted back to ED stretcher. Patient became increasingly agitated, security was called to bedside and patient was medicated with 5 mg IM Haldol for his safety and safety of ED staff. 3:40 - patient is asleep, vital signs stable 5:40 - patient is asleep, vital signs stable (Grace Patton) Time: 0600 --Patient is pending clinical sobriety. Time: 0700 --Patient endorsed to Dr. Aly Moreno. Pending clinical sobriety. Scribe Attestation: Documented by Lolis Rowley, acting as a scribe for Petey Mcdonough MD. Provider Scribe Attestation: All medical record entries made by the Scribe were at my direction and personally dictated by me. I have reviewed the chart and agree that the record accurately reflects my personal performance of the history, physical exam, medical decision making, and the department course for this patient. I have also personally directed, reviewed, and agree with the discharge instructions and disposition. (Petey Mcdonough) Disposition - POA Present On Arrival: None - Disposition Disposition: Transfer of Care Disposition Time: 06:00 Patient Signed Over To: Petey Mcdonough Handoff Comments: Signed out pending sobriety and final disposition <Grace Patton - Last Filed: 06/12/17 05:56> <Petey Mcdonough - Last Filed: 06/12/17 06:08> - Clinical Impression Clinical Impression: Alcohol abuse - Disposition Condition: FAIR Forms: [employer] (Nepali) Results <Grace Patton - Last Filed: 06/12/17 05:56> <Petey Mcdonough - Last Filed: 06/12/17 06:08> - Lab Results Lab Results: 06/11/17 06/11/17 06/11/17 23:59 23:59 23:23 WBC 7.6 RBC 4.84 Hgb 14.9 Hct 42.8 MCV 88.4 MCH 30.8 MCHC 34.9 RDW 13.6 Plt Count 205 Sodium 149 H Potassium 4.0 Chloride 108 H Carbon Dioxide 21 L Anion Gap 24 H BUN 15 Creatinine 0.9 Est GFR ( Amer) > 60 Est GFR (Non-Af Amer) > 60 POC Glucose (mg/dL) 114 H Random Glucose 132 H Calcium 9.2 Total Bilirubin 0.4 AST 46 ALT 68 Alkaline Phosphatase 75 Total Protein 8.2 Albumin 4.5 Globulin 3.7 Albumin/Globulin Ratio 1.2 Alcohol, Quantitative 430 H*
[2017-06-12 00:37] LABS: HEMOGLOBIN 14.9 g/dL (12.0-18.0); MEAN CELL VOLUME 88.4 fl (80.0-94.0); MEAN CORPUSCULAR HEMOGLOBIN 30.8 pg (27.0-31.0); MEAN CORPUSCULAR HGB CONC 34.9 g/dL (33.0-37.0); RBC 4.84 Mil/uL (4.40-5.90); RED CELL DISTRIBUTION WIDTH 13.6 % (11.5-14.5); WHITE BLOOD COUNT 7.6 K/uL (4.8-10.8)
[2017-06-12 01:21] LABS: ALB/GLOB RATIO 1.2 (1.0-2.1); ALBUMIN 4.5 g/dL (3.5-5.0); ALT/SGPT 68 U/L (21-72); AST/SGOT 46 U/L (17-59); BLOOD UREA NITROGEN 15 mg/dl (9-20); CALCIUM 9.2 mg/dL (8.4-10.2); GFR AFRICAN-AMERICAN > 60; GFR NON-AFRICAN AMERICAN > 60
--- NOTE | 2017-06-12 09:38 | ED PDOC ---
- Laboratory Results Result Diagrams: 06/11/17 23:59 06/11/17 23:59 - ECG O2 Sat by Pulse Oximetry: 99 Pulse Ox Interpretation: Normal - Progress ED Course And Treament: 700: Took over care from Dr. Mcdonough. Fu on sobriety. 936: Stable. AAOx3. Sobriety met clinically. Tolerated po. Ambulated with no issues. Admits to excessive etoh use. Disposition - Clinical Impression Clinical Impression: Alcohol abuse - POA Present On Arrival: None - Disposition Referrals: [facility] [Outside] - 06/14/17 Disposition: Routine/Home Disposition Time: 09:37 Condition: STABLE Additional Instructions: Return if not better in 3 days. Instructions: Alcohol Intoxication (ED)
[2017-06-12 09:44] VITALS: PULSE 81
[2017-06-12 10:31] VITALS: BP 131/75; RESP 16; TEMP 98; O2SAT 100
== END 2017-06-12 10:05 | disposition home or self-care (01) ==
LOC: H.ER 22:35
DX: F10.10 Alcohol abuse, uncomplicated (principal); Z79.82 Long term (current) use of aspirin
CPT/HCPCS: 80053; 80320; 82948; 85027; 96372; 99283; J1630; J2060

== ENCOUNTER 2018-06-25 19:39 | Emergency (ER) | payer OTHER ==
[2018-06-25] MEDS ORDERED: Multivitamin (MVI) 10 ML, Thiamine 100 MG, Folic Acid 1 MG in Sodium Chloride 0.9% 1,00... IV ONE (20:02)
[2018-06-25 20:31] LABS: BASO # 0.1 K/uL (0.0-0.2); BASO % 0.8 % (0.0-2.0); EOS # 0.1 K/uL (0.0-0.7); EOS % 1.4 % (0.0-4.0); HEMOGLOBIN 14.4 g/dL (12.0-18.0); LYMPH # 1.7 K/uL (1.0-4.3); LYMPH % 26.9 % (20.0-40.0); MEAN CELL VOLUME 91.5 fl (80.0-94.0); MEAN CORPUSCULAR HEMOGLOBIN 31.9 pg (27.0-31.0); MEAN CORPUSCULAR HGB CONC 34.8 g/dL (33.0-37.0); MEAN PLATELET VOLUME 7.4 fl (7.2-11.7); MONO # 0.4 K/uL (0.0-0.8); MONO % 5.8 % (0.0-10.0); NEUT # 4.2 K/uL (1.8-7.0); NEUT % 65.1 % (50.0-75.0); RBC 4.51 Mil/uL (4.40-5.90); RED CELL DISTRIBUTION WIDTH 13.1 % (11.5-14.5); WHITE BLOOD COUNT 6.4 K/uL (4.8-10.8)
[2018-06-25 20:56] LABS: ALB/GLOB RATIO 1.2 (1.0-2.1); ALBUMIN 4.4 g/dL (3.5-5.0); BLOOD UREA NITROGEN 13 mg/dl (9-20); CALCIUM 8.7 mg/dL (8.4-10.2); GFR NON-AFRICAN AMERICAN > 60
[2018-06-25 20:57] LABS: ALT/SGPT 48 U/L (21-72); AST/SGOT 58 U/L (17-59)
--- NOTE | 2018-06-25 21:28 | ED PDOC ---
HPI: Psych/Substance Abuse Time Seen by Provider: 06/25/18 19:47 Chief Complaint (Nursing): Alcohol Ingestion Chief Complaint (Provider): Alcohol Ingestion ED Caveat: Intoxicated History Per: Patient History/Exam Limitations: intoxication Modifying Factor(s): Alcohol Additional Complaint(s): 57 y/o male presents to the ED for alcohol intoxication. Patient was found [place]side a building intoxicated. He is not sure how he got to the ED. Patient states he was drinking at home and stepped outside for some fresh air and that is the last thing he remembers. Patient has findings of trauma to his head but does not know how he got them. Patient history is unreliable due to his alcohol intoxication. Patient denies any pain. He is overly concerned of where he parked his car. Past Medical History - Medical History PMH: Fractures, Sleep Apnea Denies: Chronic Kidney Disease - Surgical History Surgical History: Appendectomy - Family History Family History: States: Unknown Family Hx, CAD - Home Medications Home Medications: Ambulatory Orders Medication Instructions Recorded RX: Aspirin [Aspirin Chewable] 81 mg PO DAILY #30 chew 05/26/17 RX: Famotidine [Pepcid] 40 mg PO DAILY #30 ml 05/26/17 Atorvastatin [Lipitor] 20 mg PO DAILY #30 tab 05/27/17 - Allergies Allergies/Adverse Reactions: Allergies Allergy/AdvReac Type Severity Reaction Status Date / Time No Known Allergies Allergy Verified 05/24/17 08:06 Review of Systems Review Of Systems: ROS cannot be obtained secondary to pt's inabilty to answer questions. (alcohol intoxication) Physical Exam - Reviewed Nursing Documentation Reviewed: Yes Vital Signs Reviewed: Yes - Physical Exam Appears: Positive for: No Acute Distress Head Exam: Negative for: ATRAUMATIC (superficial abrasion to midline forehead; mild tenderness to palpation) Skin: Positive for: Warm, Dry Eye Exam: Positive for: EOMI, Conjunctival injection ENT: Negative for: Pharyngeal Erythema, Tonsillar Exudate Neck: Positive for: Painless ROM, Supple Cardiovascular/Chest: Positive for: Regular Rate, Rhythm. Negative for: Murmur Respiratory: Positive for: Normal Breath Sounds. Negative for: Respiratory Distress Gastrointestinal/Abdominal: Positive for: Soft. Negative for: Tenderness Back: Positive for: Normal Inspection. Negative for: Decreased ROM Extremity: Positive for: Normal ROM (moving extremities equally) Lymphatic: Negative for: Adenopathy Neurologic/Psych: Positive for: Mood/Affect (poor thought process; poor concentration), Gait (unsteady). Negative for: Aphasia (slurred speech) - Laboratory Results Result Diagrams: 06/25/18 20:27 06/25/18 20:27 Lab Results: Total Bilirubin 0.4 mg/dl (0.2-1.3) 06/25/18 20: AST 58 U/L (17-59) 06/25/18 20: ALT 48 U/L (21-72) 06/25/18 20: Alkaline Phosphatase 70 U/L (38-126) 06/25/18 20: Total Protein 8.1 G/DL (6.3-8.2) 06/25/18 20: Albumin 4.4 g/dL (3.5-5.0) 06/25/18 20: Globulin 3.7 gm/dL (2.2-3.9) 06/25/18 20: Albumin/Globulin Ratio 1.2 (1.0-2.1) 06/25/18 20: Medical Decision Making Medical Decision Making: Time: 20:02 Initial Impression: alcohol intoxication and head injury Initial Plan: CT Head Alcohol serum CMP CBC w/ diff Glucose IV fluids 20:47 CT Head FINDINGS: BRAIN No acute intraparenchymal hemorrhage. No mass lesion. No CT evidence for acute territorial infarct. No midline shift or extra-axial collections. VENTRICLES: No hydrocephalus. VASCULAR: Some atherosclerotic vascular plaquing is noted within the carotid siphons bilaterally. ORBITS: The orbits are unremarkable. SINUSES AND MASTOIDS: The mastoid air cells are clear. A 1.9 cm mucous retention cyst or polyp is seen in the inferior anterior left maxillary sinus. The remaining paranasal sinuses appear satisfactorily developed and aerated. BONES: No fracture. SOFT TISSUES: Unremarkable. IMPRESSION: 1. No acute intracranial abnormality. 2. Atherosclerotic vascular plaquing within the carotid siphons bilaterally. 3. Sinusitis. 20:05 Patient became uncooperative in the ER and is demanding to leave because he had to go to work. 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 Patient continues to have unsteady gait, poor thought process, poor concentration, and poor memory. He is attempting to leave the ER. Patient given medications for acute alcohol induced psychosis and is placed in restraints for safety. Time: 0000 Patient care endorsed to Dr. Naa Gann, pending sobriety. Scribe Attestation: Documented by Srini Cazares acting as a scribe for Grace Hurtado MD. Provider Scribe Attestation: All medical record entries made by the Scribe were at my direction and personall y dictated by me. I have reviewed the chart and agree that the record accurately reflects my personal performance of the history, physical exam, medical decision making, and the department course for this patient. I have also personally directed, reviewed, and agree with the discharge instructions and disposition. Disposition - Clinical Impression Clinical Impression: Alcohol abuse with intoxication - Disposition Disposition: Transfer of Care Disposition Time: 00:00 Condition: STABLE Print Language: FRISIAN
--- NOTE | 2018-06-25 23:47 | ED PDOC ---
- Laboratory Results Result Diagrams: 06/25/18 20:27 06/25/18 20: Lab Results: Total Bilirubin 0.4 mg/dl (0.2-1.3) 06/25/18 20: AST 58 U/L (17-59) 06/25/18 20: ALT 48 U/L (21-72) 06/25/18 20: Alkaline Phosphatase 70 U/L (38-126) 06/25/18 20: Total Protein 8.1 G/DL (6.3-8.2) 06/25/18 20: Albumin 4.4 g/dL (3.5-5.0) 06/25/18: Globulin 3.7 gm/dL (2.2-3.9) 06/25/18: Albumin/Globulin Ratio 1.2 (1.0-2.1) 06/25/18: Medical Decision Making Medical Decision Making: Time: 0000 Patient care was endorsed from Dr. Grace Hurtado, pending sobriety. Time: 0615 Patient is ambulatory and tolerating PO. Patient is alert and oriented x3 and was advised to seek profession help for alcohol addiction. Scribe Attestation: Documented by Satish Weston, acting as a scribe for Naa Gann MD. Provider Scribe Attestation: All medical record entries made by the Scribe were at my direction and personally dictated by me. I have reviewed the chart and agree that the record accurately reflects my personal performance of the history, physical exam, medical decision making, and the department course for this patient. I have also personally directed, reviewed, and agree with the discharge instructions and disposition. Disposition - Clinical Impression Clinical Impression: Alcohol abuse with intoxication - POA Present On Arrival: None - Disposition Disposition: Routine/Home Disposition Time: 06:15 Condition: STABLE Print Language: AUSTRALIAN
[2018-06-26 07:18] VITALS: RESP 18; O2SAT 98
[2018-06-26 07:21] VITALS: BP 142/82; PULSE 82; TEMP 98.9
--- NOTE | 2018-06-26 10:23 | CT ---
Date of service: 06/25/2018 PROCEDURE: CT HEAD WITHOUT CONTRAST. HISTORY: fall head injury COMPARISON: None available. TECHNIQUE: Axial computed tomography images were obtained through the head/brain without intravenous contrast. Radiation dose: Total exam DLP = 1069.25 mGy-cm. This CT exam was performed using one or more of the following dose reduction techniques: Automated exposure control, adjustment of the mA and/or kV according to patient size, and/or use of iterative reconstruction technique. FINDINGS: HEMORRHAGE: No intracranial hemorrhage. BRAIN: No mass effect or edema. No atrophy or chronic microvascular ischemic changes. VENTRICLES: Unremarkable. No hydrocephalus. CALVARIUM: Bilateral nasal bone fractures. PARANASAL SINUSES: 1.9 cm polyp or retention cyst in the inferior left maxillary sinus. MASTOID AIR CELLS: Unremarkable as visualized. No inflammatory changes. OTHER FINDINGS: None. IMPRESSION: No acute intracranial pathology.
== END 2018-06-26 06:10 | disposition home or self-care (01) ==
LOC: H.ER 19:39
DX: F10.129 Alcohol abuse with intoxication, unspecified (principal); S09.90XA Unspecified injury of head, initial encounter; X58.XXXA Exposure to other specified factors, initial encounter; Y92.89 Other specified places as the place of occurrence of the external cause; J32.9 Chronic sinusitis, unspecified; Z79.82 Long term (current) use of aspirin
CPT/HCPCS: 70450; 80053; 80320; 82948; 85025; 96372; 99285; J1630; J2060

== ENCOUNTER 2018-07-16 22:04 | Emergency (ER) | payer OTHER ==
--- NOTE | 2018-07-16 22:30 | ED PDOC ---
HPI: Back Time Seen by Provider: 07/16/18 22:23 Chief Complaint (Nursing): Back Pain Chief Complaint (Provider): Lower back Pain History Per: Patient History/Exam Limitations: intoxication Additional Complaint(s): Pt presents to the ED via EMS after suffering a slip and fall on an icy patch in the [facility]. Pt indicates lower back pain with no reduction in ROM either active or passive, and no numbness or tingling in the arms or lwegs. Past Medical History Reviewed: Historical Data, Nursing Documentation, Vital Signs Vital Signs: Last Vital Signs Temp 98.3 F 07/16/18 22:10 Pulse 90 07/16/18 22:10 Resp 18 07/16/18 22:10 BP 105/83 07/16/18 22:10 Pulse Ox 97 07/16/18 22:10 - Medical History PMH: Fractures, Sleep Apnea Denies: Chronic Kidney Disease - Surgical History Surgical History: Appendectomy - Family History Family History: States: Unknown Family Hx, CAD - Home Medications Home Medications: Ambulatory Orders Medication Instructions Recorded Aspirin [Aspirin Chewable] 81 mg PO DAILY #30 chew 05/26/17 Famotidine [Pepcid] 40 mg PO DAILY #30 ml 05/26/17 Atorvastatin [Lipitor] 20 mg PO DAILY #30 tab 05/27/17 Diclofenac Potassium 50 mg PO BID #20 tablet 07/17/18 - Allergies Allergies/Adverse Reactions: Allergies Allergy/AdvReac Type Severity Reaction Status Date / Time No Known Allergies Allergy Verified 07/16/18 22:06 Review of Systems ROS Statement: Except As Marked, All Systems Reviewed And Found Negative Musculoskeletal: Positive for: Back Pain Physical Exam - Reviewed Nursing Documentation Reviewed: Yes Vital Signs Reviewed: Yes - Physical Exam Appears: Positive for: Well, Non-toxic, No Acute Distress. Negative for: Uncomfortable Head Exam: Positive for: ATRAUMATIC, NORMAL INSPECTION Skin: Positive for: Normal Color, Warm, Dry. Negative for: Diaphoresis, Pallor, Rash Eye Exam: Positive for: Normal appearance, PERRL. Negative for: Nystagmus, Periorbital swelling, Periorbital tenderness Neck: Positive for: Normal, Painless ROM, Supple. Negative for: Decreased ROM Cardiovascular/Chest: Positive for: Regular Rate, Rhythm Respiratory: Positive for: Normal Breath Sounds Pulses-Carotid (L): 2+ Pulses-Carotid (R): 2+ Pulses-Radial (L): 2+ Pulses-Radial (R): 2+ Back: Positive for: Normal Inspection, Muscle Spasm. Negative for: L CVA Tenderness, R CVA Tenderness, Vertebral Tenderness - ECG O2 Sat by Pulse Oximetry: 97 Medical Decision Making Medical Decision Making: I: slip and fall injury R/O acute injury to lumbar spine P: Lumbar Xray Xr wet read by myself indicates no acute injury; lumbar spine shows indicates of djd and mild scoliosis with concavity right the patient is requesting discharge the patient is stable for discharge the patient is safe for discharge All questions by the patieent were responded to in the ED prior to discharge Disposition - Clinical Impression Clinical Impression: Lumbar pain - Patient ED Disposition Is Patient to be Admitted: No Counseled Patient/Family Regarding: Diagnosis, Need For Followup, Rx Given - Disposition Disposition: Routine/Home Disposition Time: 00:41 Condition: STABLE Prescriptions: Diclofenac Potassium 50 mg PO BID #20 tablet Instructions: Low Back Pain (DC), Chronic Pain (DC) Forms: [employer] (Greenlandic)
[2018-07-17 00:59] VITALS: BP 145/85; PULSE 78; RESP 16; TEMP 98.2; O2SAT 98
--- NOTE | 2018-07-17 10:45 | RAD ---
Date of service: 07/16/2018 PROCEDURE: Radiographs of the Lumbar Spine. HISTORY: slip and fall COMPARISON: No prior. FINDINGS: BONES: Age-indeterminate superior endplate depressions involving L2 and L3. DISC SPACES: Multilevel disc space narrowing with endplate osteophytic changes OTHER FINDINGS: None. IMPRESSION: Superior endplate depressions involving L2 and L3. If there is clinical concern for acute fracture, MRI may be obtained for further characterization of acuity. ER notification submitted electronically.
--- NOTE | 2018-07-19 12:26 | ED PDOC ---
ED Additional Note - Date & Time of Evaluation Date of Evaluation: 07/19/18 Time of Evaluation: 12:20 - Physician Additional Note Physician Additional Note: PA performing Radiology call backs. Lumbar x-ray 07/16/18: Superior endplate depressions involving L2 and L3. If there is clinical concern for acute fracture, MRI may be obtained for further characterization of acuity. ER notification submitted electronically. Second attempt made to reach patient. I spoke with patient who states that his back continues to be very painful, although pain meds are helping somewhat. He was encouraged to either follow up with his primary care doctor or neurosurgeon to have MRI for further classification of possible lumbar spinal fracture. Patient is currently unable to write down any information and will call back the ER main number when he is able, to obtain contact information for referrals or will return if pain worsens or he develops numbness or tingling.
--- NOTE | 2018-07-19 18:19 | ED PDOC ---
ED Additional Note - Date & Time of Evaluation Date of Evaluation: 07/19/18 Time of Evaluation: 18:15 - Physician Additional Note Physician Additional Note: Pt called back re: results from lumbar x-ray. He states that pain persists despite using Ibuprofen. Denies urinary or fecal incontinence, numbness or tingling in feet. He was given referral to Primary care doctor (Dr. Boyd Jefferson) as well as neurosurgeon (Dr. Ike Collier) for follow up as he states that he does not want to return to ED. Pt advised to return directly to ER if he is having lower extremity weakness or fecal/urinary incontinence.
== END 2018-07-17 01:00 | disposition home or self-care (01) ==
LOC: H.ER 22:04
DX: S33.121A Dislocation of L2/L3 lumbar vertebra, initial encounter (principal); W01.0XXA Fall on same level from slipping, tripping and stumbling without subsequent striking against object, initial encounter; Y92.89 Other specified places as the place of occurrence of the external cause; Z79.82 Long term (current) use of aspirin